=== PATIENT | female | born 1935 | race Hispanic/Latino ===

== ENCOUNTER 2017-05-15 12:59 | Outpatient (CLI) | payer MEDICARE ==
--- NOTE | 2017-05-15 13:28 | XRay Report ---
Right knee: Pain. There is good bone alignment. The articular surfaces are smooth. The joint space of the medial compartment appears mildly narrowed. There is no effusion and no swelling. Impression: Mild medial joint compartment narrowing.
== END 2017-05-15 13:00 | disposition home or self-care (01) ==
LOC: SPVIMAG 12:59
PROVIDERS: ATTEND Orthopaedic Surgery Sports Medicine
DX: M25.561 Pain in right knee (principal)